=== PATIENT | female | born 1990 | race Caucasian/White ===

== ENCOUNTER 2022-08-03 08:43 | Inpatient (IN) | payer OTHER ==
[~2022-08-03] VITALS: Ht 160 cm; Wt 69.4 kg
[2022-08-03] MEDS: ACYCLOVIR 200 MG CAP PO SCH (09:00)
[2022-08-03] MEDS ORDERED: CARBOPROST 250 MCG/ML AMP IM PRN (09:30)
[2022-08-03] MEDS ORDERED: METHYLERGONOVINE 0.2 MG/ML AMP IM PRN (09:30)
[2022-08-03] MEDS ORDERED: PNV91TAB10 PO (10:02)
[2022-08-03] MEDS ORDERED: ACYC400T14 PO (10:02)
[2022-08-03 10:14] LABS: APPEARANCE,URINE CLEAR (CLEAR); BILIRUBIN,URINE NEGATIVE (NEGATIVE); BLOOD, URINE TRACE-I (NEGATIVE); COLOR,URINE YELLOW (YELLOW); LEUKOCYTE ESTERASE ,URINE NEGATIVE (NEGATIVE); NITRITE, URINE NEGATIVE (NEGATIVE); UGLUCOSE NEGATIVE (NEGATIVE)
[2022-08-03 10:23] LABS: BASOPHILS % (AUTO) 0.1 % (0.0-2.0); EOSINOPHILS % (AUTO) 0.6 % (0.0-4.0); HEMOGLOBIN 12.1 g/dL (12.0-16.0); LYMPHOCYTES # (AUTO) 1.5 K/uL (2.5-16.5); LYMPHOCYTES % (AUTO) 20.8 % (20.5-51.1); MEAN CORPUSCULAR HEMOGLOBIN 31 pg (27-31); MEAN CORPUSCULAR HGB CONC 34 g/dL (33-37); MEAN CORPUSCULAR VOLUME 91.2 fL (80-94); MONOCYTES # (AUTO) 0.6 K/uL (0.8-1.0); MONOCYTES % (AUTO) 8.1 % (1.7-9.3); NEUTROPHILS # (AUTO) 4.9 K/uL (1.8-7.7); NEUTROPHILS % (AUTO) 70.4 % (42.2-75.2); PLATELET COUNT (AUTO) 147 K/uL (140-450); RED BLOOD CELL COUNT(AUTO) 3.95 MIL/uL (4.20-5.40); RED CELL DISTRIBUTION WIDTH 14.3 % (11.6-13.7)
[2022-08-03 10:25] LABS: PROTHROMBIN TIME 8.8 secs (10.8-13.4)
[2022-08-03 10:26] LABS: ALBUMIN 2.3 g/dL (3.4-5.0); CREATININE 0.7 mg/dL (0.6-1.3); TOTAL BILIRUBIN 0.4 mg/dL (0.0-1.0)
[2022-08-03 10:31] LABS: RBC,URINE 0-5 /HPF (0-5); WBC,URINE 0-5 /HPF (0-5)
[2022-08-03] MEDS: LACTATED RINGERS 1,000 ML IV SCH ×2 (10:50→16:43)
[2022-08-03] MEDS ORDERED: MISOPROSTOL 25 MCG TAB VG PRN (11:25)
[2022-08-03] MEDS ORDERED: MISOPROSTOL 200 MCG TAB VG SCH ×2 (12:00→18:00)
[2022-08-03] MEDS ORDERED: MORPHINE SULFATE 5 MG/ML VIAL IVP PRN (20:05)
[2022-08-03] MEDS ORDERED: ONDANSETRON 4 MG/2 ML VIAL IVP PRN (20:05)
[2022-08-03] MEDS ORDERED: AMPICILLIN 2,000 MG VIAL ONE (21:23)
[2022-08-03] MEDS ORDERED: AMPICILLIN 2,000 MG in NACL 0.9% 100 ML IV STA (21:26)
[2022-08-03] MEDS ORDERED: LIDOCAINE 1% 500 MG/ 50 ML VIAL INJ SCH (22:05)
[2022-08-03] MEDS ORDERED: OXYTOCIN 20 UNITS in LACTATED RINGERS 1,000 ML IV SCH (22:05)
[2022-08-03] MEDS ORDERED: OXYTOCIN 20 UNITS/LR PREMIX 1,000 ML IV ONE (22:08)
[2022-08-04] MEDS ORDERED: IBUPROFEN 800 MG TAB PO PRN (01:55)
[2022-08-04] MEDS ORDERED: BENZOCAINE/MENTHOL 20%-0.5% 60 GM CAN TP PRN (01:55)
[2022-08-04] MEDS ORDERED: MEASLES, MUMPS, AND RUBELLA 1 VIAL SQVAC ONE (01:55)
[2022-08-04] MEDS ORDERED: METHYLERGONOVINE 0.2 MG/ML AMP IM PRN (01:55)
[2022-08-04] MEDS ORDERED: OXYTOCIN 10 UNITS/ML VIAL IM PRN (01:55)
[2022-08-04] MEDS ORDERED: METHYLERGONOVINE 0.2 MG TAB PO PRN (01:55)
[2022-08-04] MEDS ORDERED: DOCUSATE SODIUM 100 MG GELCAP PO PRN (03:35)
--- NOTE | 2022-08-04 09:10 | NUR ---
PATIENT HAS BEEN SCREENED AND CATEGORIZED LOW NUTRITION RISK. PATIENT WILL BE SEEN WITHIN 7 DAYS OF ADMISSION. 08/03/22-08/10/[address]
[2022-08-04] MEDS: ACYCLOVIR 200 MG CAP PO SCH (09:25)
[2022-08-05 05:45] LABS: HEMATOCRIT 34.6 % (36-48); HEMOGLOBIN 11.6 g/dL (12.0-16.0)
[2022-08-05] MEDS: ACYCLOVIR 200 MG CAP PO SCH (09:10)
== END 2022-08-05 13:55 | disposition home or self-care (01) | DRG 560 ==
LOC: MLD 08:43 → MFCC 08-04 01:25
PROVIDERS: ADMIT Obstetrics & Gynecology; ATTEND Obstetrics & Gynecology
PROC: 10E0XZZ Delivery of Products of Conception, External Approach (ICD-10-PCS; principal; 2022-08-03)
DX: O48.0 Post-term pregnancy (principal); Z37.0 Single live birth; D62 Acute posthemorrhagic anemia; Z20.822 Contact with and (suspected) exposure to COVID-19; Z3A.40 40 weeks gestation of pregnancy
CPT/HCPCS: 36415; 76815; 80053; 81001; 85018; 85025; 85610; 85730; 86592; 86886; 86900; 86901; 87086; J0290; J2590; J7120; Q0092